=== PATIENT | female | born 1945 | race Caucasian/White ===

== ENCOUNTER → 2018-08-14 15:30 | Outpatient (REF) | payer MEDICARE, SELFPAY ==
[2018-08-15 12:45] LABS: Color, Urine Yellow (Yellow); Glucose, Dipstick Normal (Normal); Ketone-Dipstick 5 mg/dl (Negative); Leukocyte Esterase-Dipstick 500 /ul (Negative); Nitrite-Dipstick Positive (Negative); Occult Blood-Urine 50 /ul (Negative); Protein-Dipstick 30 mg/dl (Negative); Urine Bilirubin Dipstick Negative (Negative); Urine Clarity Sl. Cloudy (Clear); Urine Urobilinogen Normal (Normal)
== END ==
LOC: OLS.BROOKB 15:30
PROVIDERS: Visit Provider Family Medicine
DX: R35.0 Frequency of micturition (principal)
CPT/HCPCS: 81002; 87077; 87086; 87088; 87186

== ENCOUNTER → 2018-08-27 09:45 | Outpatient (REF) | payer MEDICARE, SELFPAY ==
[2018-08-27 10:53] LABS: Color, Urine Yellow (Yellow); Glucose, Dipstick Normal (Normal); Ketone-Dipstick 5 mg/dl (Negative); Leukocyte Esterase-Dipstick 25 /ul (Negative); Nitrite-Dipstick Negative (Negative); Occult Blood-Urine 25 /ul (Negative); Protein-Dipstick 15 mg/dl (Negative); Specific Gravity, Urine 1.015 (1.002-1.030); Urine Bilirubin Dipstick Negative (Negative); Urine Clarity Clear (Clear); Urine Urobilinogen Normal (Normal)
== END ==
PROVIDERS: Visit Provider Family Medicine
DX: N39.0 Urinary tract infection, site not specified (principal)
CPT/HCPCS: 81002; 87086; 87088

== ENCOUNTER → 2018-09-23 17:30 | Outpatient (REF) | payer MEDICARE, SELFPAY ==
--- OUTSIDE RECORDS SUMMARY | 2018-12-27 13:05 | XMS RPT_ITS ---
:1945 Author Organization OHIP Care Team Providers Name Role Phone Felicia Dsouza Attending Unavailable Felicia Dsouza Attending Unavailable Asaf Lopez Attending Unavailable PROBLEMS PROBLEMS DATE TYPE CONDITION / CODE ATTENDING STATUS SOURCE 10/16/2018 Unknown R19.7 - Diarrhea, Felicia Dsouza Active [place] unspecified / Community R19.7(ICD-10) Hospital Repository 09/13/2018 Unknown N39.0 - Urinary Asaf Lopez Active [place] tract infection, Community site not Hospital specified / Repository N39.0(ICD-10) 08/17/2018 Unknown R35.0 - Frequency Felicia Dsouza Active [place] of micturition / Community R35.0(ICD-10) Hospital Repository PROCEDURES PROCEDURES No Procedure Records FoundRESULTS RESULTS Observed: 09/23/2018 Status: F Source: [place] CDIFF (MOLECULAR) 5:30 PM [facility] Cdiff-Molecular Normal Reference Range = Negative C. Diff DNA Negative- No toxigenic C. 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 CLEAN CATCH TYPE CODE TESTS RESULT OUT OF RANGE REFERENCE UNITS LAB L400.3000 Yellow COLOR Normal Yellow LAB L400.3050 Clear Normal CLARITY Clear LAB L400.3200 Normal mg/dl Normal GLUCOSE, UR Normal LAB L400.3300 Negative mg/dL Normal BILIRUBIN URINE Negative LAB L400.3400 Negative mg/dl High 5 KETONE UR LAB L400.3465 1.002-1.030 Normal SP.GR. DIPSTX 1.015 LAB L400.3550 5.0 - 8.0 pH UR Normal 6.0 LAB L400.3600 Negative mg/dl High PROT 15 DIPSTX LAB L400.3700 Normal mg/dl Normal UROBILI Normal LAB L400.3750 Negative Normal NITRITE UR Negative LAB L400.3780 Negative /ul High 25 OCCULT BLOOD-UR LAB L400.3800 Negative /ul High LEUK 25 ESTERASE Performed By: #### L400.2011 #### [facility] [address] [facility] [place], [address] Observed: 08/27/2018 Status: F Source: [place] CULTURE, URINE 9:45 AM [facility] ROOM 7 JILLER IS NURSE MENTAL HEALTH TECH Urine Culture ORGANISM 1: Mixed Gram Positive Organisms Hebo Count <1000 MIX CULTURE Mixed contaminants. Submit a new specimen if indicated. Performed By: #### M100.0650 #### [facility] [address] [facility] [place], [address] URINALYSIS, ROUTINE Collected: 08/14/2018 Status: F Source: [place] (DIPSTICK) 3:30 PM [facility] Order Comment: How was Urine Obtained? CLEAN CATCH TYPE CODE TESTS RESULT OUT OF RANGE REFERENCE UNITS LAB L400.3000 Yellow COLOR Normal Yellow LAB L400.3050 Clear Normal CLARITY Sl. Cloudy LAB L400.3200 Normal mg/dl Normal GLUCOSE, UR Normal LAB L400.3300 Negative mg/dL Normal BILIRUBIN URINE Negative LAB L400.3400 Negative mg/dl High 5 KETONE UR LAB L400.3465 1.002-1.030 Normal SP.GR. DIPSTX 1.010 LAB L400.3550 5.0 - 8.0 pH UR Normal 7.0 LAB L400.3600 Negative mg/dl High PROT 30 DIPSTX LAB L400.3700 Normal mg/dl Normal UROBILI Normal LAB L400.3750 Negative High NITRITE UR Positive LAB L400.3780 Negative /ul High 50 OCCULT BLOOD-UR LAB L400.3800 Negative /ul High LEUK ESTERASE 500 Performed By: #### L400.2010 #### [facility] [address] [place], [place], [id number] Observed: 08/14/2018 Status: F Source: [place] CULTURE, URINE 3:30 PM [facility] Urine Culture ORGANISM 1: Raoultella planticola Hebo Count >100,000 Raoultella planticola: REACTION Amoxacillin/Clavulanic Acid $ <=2 S Ampicillin $ >=32 R Ampicillin/Sulbactam $ 4 S Cefazolin $ <=4 S Cefepime $ <=1 S Ceftriaxone $ <=1 S Ciprofloxacin $ <=0.25 S Gentamicin $ <=1 S Imipenem *NF 0.5 S Levofloxacin $ <=0.12 S Nitrofurantoin $ 32 S Piperacillin/Tazobactam $$ <=4 S Tobramycin $ <=1 S Trimethoprim/Sulfametho $ <=20 S (NF) indicates non-formulary drug at [facility]. Approval by Infectious Disease Specialist required before non-formulary drugs may be ordered and/or dispensed. Performed By: #### M100.0650 #### [facility] [address] [place], [place], [id number] ALLERGIES ALLERGIES DATE TYPE / CODE NAME / CODE REACTION SEVERITY SOURCE 10/14/2014 Drug Penicillins/F Other Unknown [facility] Allergy/4160 [id number](RXN [facility] 64510(SNOMED ORM) Repository CT) 10/14/2014 Drug Sulfa Other Unknown [facility] Allergy/4160 (Sulf[facility] 29201(SNOMED Antibiotics)/ Repository CT) [id number](RX NORM) ENCOUNTERS ENCOUNTERS ADMIT/DISCHARGE ACCOUNT ADMITTING ENCOUNTER LOCATION SOURCE NUMBER CLASS 09/23/2018 [id number] Ambulatory [place] [facility] ing:MAGDY Repository B 08/27/2018 [id number] Ambulatory [place] [facility] ing:MAGDY Repository A 08/14/2018 [id number] Ambulatory [place] 4 [facility] ing:MAGDY Repository B PAYERS PAYERS ENCOUNTER GUARANTOR PAYER SUBSCRIBER SOURCE 09/23/2018 Eulogio Tiwari Primary Insurance:MMO Eulogio [place] [id number] EYGPT MEDICAREPolicy IDOB: [facility] RDC/O GENE Number: [id number] [id number] [address]Ilm: Date:[id number] [address] [place] [address] () [id number]: 09/23/2018 Secondary NOT GIVENUNK [place] Insurance:SELF PAY [facility] Number: Effective Repository Date:2018-09-23 08/27/2018 Eulogio Tiwrai Primary Insurance:MMO Eulogio [place] [id number] EYGPT MEDICAREPolicy IDOB: Community RDC/O GENE Number: [id number] [id number] [place], [place] [address]Dla: Date:[id number] [address] [place] [address] () [id number]: 08/27/2018 Secondary NOT GIVENUNK [place] Insurance:SELF PAY [facility] Number: Effective Repository Date:2018-08-27 08/14/2018 Eulogio Tiwari Primary Insurance:MMO Eulogio [place] [id number] EYGPT MEDICAREPolicy IDOB: [facility] RDC/O GENE Number: [id number] [id number], [place] [address]Bcv: Date:[id number] [address] [place] [address] () [phone]: 08/14/2018 Secondary NOT GIVENUNK [place] Insurance:SELF PAY [facility] Number: Effective Repository Date:2018-08-14
== END ==
LOC: OLS.BROOKB 17:30
PROVIDERS: Visit Provider Family Medicine
DX: R19.7 Diarrhea, unspecified (principal)
CPT/HCPCS: 87493

== ENCOUNTER → 2019-04-01 17:00 | Outpatient (REF) | payer SELFPAY ==
[2019-04-02 06:47] LABS: Mucous, Urine 0 SEEN /hpf (<or=2+); Red Blood Cells-Urine 0 SEEN /hpf (0-5); White Blood Cells 0 SEEN /hpf (0-5)
[2019-04-02 07:14] LABS: Color, Urine Yellow (Yellow); Glucose, Dipstick Normal (Normal); Ketone-Dipstick Negative (Negative); Leukocyte Esterase-Dipstick 25 /ul (Negative); Nitrite-Dipstick Negative (Negative); Occult Blood-Urine Negative /ul (Negative); Protein-Dipstick Negative (Negative); Specific Gravity, Urine 1.015 (1.002-1.030); Urine Bilirubin Dipstick Negative (Negative); Urine Clarity Sl. Cloudy (Clear); Urine Urobilinogen Normal (Normal)
[2019-04-02 07:34] LABS: Bacteria RARE /hpf (None Seen); Squamous Epithelial Cells - UA 0-5 SEEN /hpf (5-10); Transitional Epithelial - Ur 0-5 SEEN /hpf (0-5)
== END ==
LOC: OLS.BROOKB 17:00
PROVIDERS: Visit Provider Family Medicine
DX: N39.0 Urinary tract infection, site not specified (principal)
CPT/HCPCS: 81001; 87086; 87088